=== PATIENT | male | born 1945 | race Hispanic/Latino ===

== ENCOUNTER 2018-08-15 08:37 | Emergency (ER) | payer BC, MEDICARE ==
[2018-08-15] MEDS ORDERED: Iopamidol 370 76% 100 ML VIAL ONE (09:00)
[2018-08-15 09:22] LABS: #Basophils 0.2 thou/uL (0.0-0.2); #Eosinphils 0.1 thou/uL (0.0-0.7); #Lymphocytes 1.4 thou/uL (1.20-3.40); #Monocytes 0.8 thou/uL (0.11-0.59); #Neutrophils 5.1 thou/uL (1.40-6.50); %Basophils 2.5 % (0.0-1.0); %Eosinophils 1.8 % (0.0-10.0); %Lymphocytes 17.8 % (21.0-51.0); %Monocytes 10.1 % (0.0-10.0); %Neutrophils 67.7 % (42.0-75.0); Hemoglobin 11.2 g/dL (14.0-18.0); Mean Corpuscular HGB CONC 31.2 g/dL (32.0-36.0); Mean Corpuscular Hemoglobin 27.3 pg (27.0-31.0); Mean Corpuscular Volume 87.3 fL (78.0-98.0); Mean Platelet Volume 6.3 fL (7.4-10.4); Platelet Count 298 thou/uL (130-400); RBC Distribution Width 14.8 % (11.5-14.5); White Blood Cell (WBC) Count 7.6 thou/uL (4.8-10.8)
[2018-08-15 09:37] LABS: ALT (SGPT) 12 U/L (8-55); AST (SGOT) 22 U/L (5-34); Albumin 3.7 g/dL (3.4-4.8); Alkaline Phosphatase 94 U/L (40-150); Anion Gap 16 mmol/L (10-20); BUN (Urea Nitrogen) 17 mg/dL (8.4-25.7); Bilirubin, Total 0.4 mg/dL (0.2-1.2); CK (CPK) 138 U/L (30-200); Calc. Creatinine Clearance 0 mL/min (70-130); Calcium 8.7 mg/dL (7.8-10.44); Carbon Dioxide 19 mmol/L (23-31); Chloride 108 mmol/L (98-107); Estimated GFR-MDRD 63; Globulin 3.6 g/dL (2.4-3.5); Glucose 87 mg/dL (83-110); Potassium 3.8 mmol/L (3.5-5.1); Protein, Total 7.3 g/dL (5.8-8.1); Sodium 139 mmol/L (136-145)
[2018-08-15 09:45] LABS: Base Excess-Venous -2.7 mmol/L (-2.0 to 3.0); Bicarbonate (HCO3v) 22.6 mmol/L (22.0-28.0); CO2 Tension (PvCO2) 40.3 mmHg (40.0-50.0); O2 Tension (PvO2) 158.3 mmHg (35.0-45.0); pH (Venous) 7.357 (7.320-7.430); vO2 Saturation-calc 99.3 % (60.0-85.0)
[2018-08-15 09:46] LABS: Calcium, Ionized 1.09 mmol/L (See Comments:)
[2018-08-15 09:56] LABS: CKMB 5.1 ng/mL (0-6.6)
--- NOTE | 2018-08-15 09:56 | RAD ---
CHEST 1 VIEW: Date: 08/15/18 HISTORY: Cough and congestion for 1 week. Shortness of breath. COMPARISON: 06/15/14. FINDINGS: Marked cardiomegaly with bilateral vascular congestion and interstitial edema. Bilateral pleural effu sions. There is a 4.8 cm diameter somewhat irregular shaped opacity in the right mid lung zone. I am not certain whether this could possibly represent a focal area of pneumonia, loculated pleural effusi on, or even underlying pulmonary mass. Short-term follow-up is suggested. IMPRESSION: Cardiomegaly with vascular congestion, interstitial edema, and pleural effusions. Evidence for conges tive heart failure. 4.8 cm diameter somewhat nodular opacity in the right mid lung zone with possibil ities including that of loculated pleural effusion, pneumonia, or underlying mass. Short-term follow- up suggested. POS: CHARLES
[2018-08-15 10:03] LABS: Chloride 108 mmol/L (98-107); Potassium 3.5 mmol/L (3.5-5.1); Sodium 141 mmol/L (138-145); T. Carbon Dioxide 23.9 mmol/L (22.0-28.0)
[2018-08-15] MEDS ORDERED: Furosemide 40 MG/4 ML VIAL ONE (10:09)
[2018-08-15] MEDS ORDERED: hydrALAZINE 20 MG/ML VIAL ONE (10:58)
[2018-08-15 11:42] LABS: Bilirubin Negative (Negative); Blood, Urine Trace (Negative); Clarity Clear (Clear); Glucose, Urine (Dipstick) Negative (Negative); Leukocyte Negative (Negative); Nitrite Negative (Negative); Protein, Urine (Dipstick) Negative (Neg-Trace); Urobilinogen 0.2 mg/dL (0.2-1.0); pH, Urine 5.5 (5.0-9.0)
[2018-08-15 11:58] LABS: RBC/HPF 0-3 HPF (0-3)
--- NOTE | 2018-08-15 12:00 | CT ---
CTA CHEST WITH CONTRAST: Date: 08/15/18 Multiple axial tomograms obtained through the chest following an angio protocol with multiplanar hyacinth nstruction and 3D postprocessing. INDICATION: Shortness of breath. Elevated D-Dimer. FINDINGS: Pulmonary arteries show adequate opacification. No evidence of pulmonary embolus identified. Thoracic aorta is unremarkable with no evidence of dissection. Mild atherosclerotic change present. Images of the lung renee show mild to moderate bilateral pleural effusions with bibasilar atelectasi s. Cardiomegaly with vascular congestion. Mediastinum shows nonspecific lymph nodes in the mediastinal and hilar regions. Images through upper abdomen unremarkable. IMPRESSION: 1. No evidence of pulmonary embolus. 2. Bilateral pleural effusions. 3. Cardiomegaly and mild vascular congestion. POS: CHARLES
[2018-08-15 14:24] LABS: Troponin I 0.114 ng/mL (< 0.028)
== END 2018-08-15 13:53 | disposition short-term general hospital (02) ==
LOC: NAV ERS 08:37
DX: I11.0 Hypertensive heart disease with heart failure (principal); I50.9 Heart failure, unspecified; M81.0 Age-related osteoporosis without current pathological fracture; Z87.891 Personal history of nicotine dependence
CPT/HCPCS: 71045; 71275; 80053; 81003; 81015; 82330; 82550; 82553; 82803; 83605; 83880; 84484; 85025; 85379; 87040; 87804; 93005; 96374; 96375; J0360; J1940; J7620; Q9967